=== PATIENT | male | born 1965 | race Two or more races ===

== ENCOUNTER 2018-09-23 08:34 | Outpatient (CLI) | payer OTHER, BC | END 2018-09-23 08:49 | disposition home or self-care (01) | LOC: RAD 501 08:34 | DX: M77.11 Lateral epicondylitis, right elbow (principal) ==

== ENCOUNTER 2018-09-23 11:52 | Outpatient (CLI) | payer OTHER ==
[~2018-09-23] VITALS: Ht 152.4 cm; Wt 77.1 kg
== END 2018-09-23 12:10 | disposition home or self-care (01) ==
LOC: OFIC 805 11:52
DX: H61.23 Impacted cerumen, bilateral (principal); H90.3 Sensorineural hearing loss, bilateral